=== PATIENT | female | born 1980 | race Hispanic/Latino ===

== ENCOUNTER 2018-07-31 23:21 | Observation (INO) | payer MEDICAID, OTHER ==
[~2018-07-31] VITALS: Ht 160 cm; Wt 80.3 kg
[2018-07-31] MEDS ORDERED: LACTATED RINGERS 1000ML 1,000 ML IV SCH (23:45)
[2018-07-31] MEDS ORDERED: PREN-196 PO (23:50)
[2018-08-01 00:10] LABS: BILIRUBIN,URINE Negative (NEGATIVE); COLOR,URINE Yellow (YELLOW); GLUCOSE, URINE (UA) Negative (NEGATIVE); KETONES,URINE Negative (NEGATIVE); LEUKOCYTE ESTERASE ,URINE Negative (NEGATIVE); NITRATE,URINE Negative (NEGATIVE); OCCULT BLOOD,URINE Negative (NEGATIVE); PROTEIN,URINE Negative (NEGATIVE); UROBILINOGEN,URINE 0.2 mg/dL (0.2-1.0)
[2018-08-01 00:12] LABS: APPEARANCE,URINE CLEAR (CLEAR)
== END 2018-08-01 07:00 | disposition home or self-care (01) ==
LOC: EDH 23:21 → LDH 23:47
PROVIDERS: ADMIT Obstetrics & Gynecology; ATTEND Obstetrics & Gynecology
DX: O26.893 Other specified pregnancy related conditions, third trimester (principal); R10.2 Pelvic and perineal pain; Z3A.35 35 weeks gestation of pregnancy
CPT/HCPCS: 81003; 99285; G0378 ×7; 96360; 96361

== ENCOUNTER 2018-09-02 11:30 | Inpatient (IN) | payer MEDICAID, OTHER ==
[~2018-09-02] VITALS: Ht 152.4 cm; Wt 83.5 kg
[~2018-09-02 11:30] MED LIST: PREN-196 PO
[2018-09-02 14:06] LABS: HEMATOCRIT 40.3 % (36-48); MEAN CORPUSCULAR HEMOGLOBIN 32.1 pg (27.0-33.0); MEAN CORPUSCULAR HGB CONC 34.8 g/dL (32.0-36.0); MEAN CORPUSCULAR VOLUME 92.1 fL (79-99); PLATELET COUNT (AUTO) 252 K/uL (130-400); RED BLOOD CELL COUNT(AUTO) 4.38 MIL/uL (4.00-5.50); RED CELL DISTRIBUTION WIDTH 14.3 % (11.0-15.5); WHITE BLOOD COUNT (AUTO) 9.1 K/uL (4.8-10.8)
[2018-09-03] MEDS ORDERED: CEFAZOLIN SODIUM 1 GM VIAL IVP PRN (05:45)
[2018-09-03] MEDS ORDERED: LACTATED RINGERS 1000ML 1,000 ML IV SCH (05:45)
[2018-09-03] MEDS ORDERED: DURAMORPH PF1 MG/ML 10ML AMP IV ONE (06:34)
[2018-09-03] MEDS ORDERED: FENTANYL CITRATE PF 50 MCG/1 ML 2ML VIAL ONE (06:34)
[2018-09-03] MEDS ORDERED: SENSORCAINE/DEXT/PF 0.75% 2ML AMP IJ ONE (06:36)
[2018-09-03] MEDS ORDERED: CEFAZOLIN SODIUM 1 GM VIAL ONE (06:36)
[2018-09-03] MEDS ORDERED: ONDANSETRON HCL 4 MG/2 ML VIAL ONE (07:03)
[2018-09-03] MEDS ORDERED: SODIUM CHLORIDE 0.9% 10 ML VIAL ONE (07:23)
[2018-09-03] MEDS ORDERED: PHENYLEPHRINE HCL 10 MG/ML 1ML VIAL IV ONE (07:23)
[2018-09-03 07:24] LABS: HEPATITIS Bs ANTIGEN SCREEN P Negative (Negative)
[2018-09-03] MEDS ORDERED: METOCLOPRAMIDE 10 MG/2 ML VIAL IVP PRN (08:45)
[2018-09-03] MEDS ORDERED: DiphenhydrAMINE HCL 50 MG/ML VIAL IVP PRN (08:45)
[2018-09-03] MEDS ORDERED: PROMETHAZINE HCL 25 MG/ML 1ML AMPULE IM PRN (08:45)
[2018-09-03] MEDS ORDERED: ONDANSETRON HCL 4 MG/2 ML VIAL IVP PRN ×2 (08:45)
[2018-09-03] MEDS ORDERED: HYDROCODONE/ACETAMINOPHEN 5/325 MG TAB PO PRN (08:45)
[2018-09-03] MEDS ORDERED: ONDANSETRON HCL 4 MG/2 ML 8 MG in SODIUM CHLORIDE 0.9% 50 ML IVP NR (08:45)
[2018-09-03] MEDS ORDERED: MORPHINE SULFATE 2 MG/ML 1ML SYG IVP PRN (08:45)
[2018-09-03] MEDS ORDERED: EPHEDRINE SULFATE 50 MG/ML AMPULE IVP PRN (08:45)
[2018-09-03] MEDS ORDERED: NALOXONE HCL 0.4 MG/1 ML ML IVP PRN ×2 (08:45)
[2018-09-03 09:15] VITALS: BP 121/74
[2018-09-03 11:28] VITALS: BP 133/76
[2018-09-03] MEDS: HYDROCODONE/ACETAMINOPHEN 5/325 MG TAB PO PRN (15:28)
[2018-09-03] MEDS ORDERED: OXYTOCIN 10 USP UNITS/ML ONE (15:33)
[2018-09-03 16:00] VITALS: BP 120/67
[2018-09-03 21:07] VITALS: BP 116/73
[2018-09-03] MEDS ORDERED: DEXTROSE 5 %-0.45 % NACL 1,000 ML IV SCH (22:15)
[2018-09-04 00:03] VITALS: BP 113/67
[2018-09-04] MEDS: HYDROCODONE/ACETAMINOPHEN 5/325 MG TAB PO PRN (03:52)
[2018-09-04 04:54] VITALS: BP 120/76
[2018-09-04] MEDS ORDERED: BISACODYL 10 MG SUPP.RECT RC PRN (05:00)
[2018-09-04] MEDS ORDERED: HYDROCODONE/ACETAMINOPHEN 5/325 MG TAB PO PRN (05:00)
[2018-09-04] MEDS ORDERED: LANOLIN 30GM OINTMENT TP PRN (05:00)
[2018-09-04 07:39] LABS: HEMATOCRIT 37.1 % (36-48); MEAN CORPUSCULAR HEMOGLOBIN 31.1 pg (27.0-33.0); MEAN CORPUSCULAR HGB CONC 33.3 g/dL (32.0-36.0); MEAN CORPUSCULAR VOLUME 93.2 fL (79-99); PLATELET COUNT (AUTO) 230 K/uL (130-400); RED BLOOD CELL COUNT(AUTO) 3.98 MIL/uL (4.00-5.50); RED CELL DISTRIBUTION WIDTH 14.3 % (11.0-15.5); WHITE BLOOD COUNT (AUTO) 12.9 K/uL (4.8-10.8)
[2018-09-04 08:01] VITALS: BP 103/56
[2018-09-04] MEDS: SIMETHICONE 80 MG TAB.CHEW PO PRN ×3 (08:54→21:11)
[2018-09-04] MEDS: DOCUSATE SODIUM 100 MG CAP PO SCH ×2 (08:54→21:11)
[2018-09-04] MEDS: IBUPROFEN 600 MG TABLET PO PRN ×2 (08:56→17:57)
[2018-09-04 11:47] VITALS: BP 120/76
[2018-09-04 15:55] VITALS: BP 123/73
[2018-09-04] MEDS: ACETAMINOPHEN-CODEINE 300/30MG TAB PO PRN (17:58)
[2018-09-04 20:04] VITALS: BP 140/83
[2018-09-05 00:27] VITALS: BP 116/63
[2018-09-05] MEDS: ACETAMINOPHEN-CODEINE 300/30MG TAB PO PRN ×2 (03:44→09:30)
[2018-09-05] MEDS ORDERED: MEASLES/MUMPS/RUBELLA VACCINE, LIVE 0.5 ML/VIAL SQ ONE (03:45)
[2018-09-05] MEDS: IBUPROFEN 600 MG TABLET PO PRN ×2 (05:15→13:19)
[2018-09-05 05:35] VITALS: BP 135/72
[2018-09-05 08:04] VITALS: BP 102/55
[2018-09-05] MEDS: DOCUSATE SODIUM 100 MG CAP PO SCH (09:29)
[2018-09-05] MEDS: SIMETHICONE 80 MG TAB.CHEW PO PRN ×2 (09:29→12:39)
[2018-09-05 11:49] VITALS: BP 117/71
[2018-09-05] MEDS ORDERED: DIPH,PERTUSS(ACELL),TET VAC/PF 0.5 ML VIAL IM SCH (12:00)
== END 2018-09-05 13:45 | disposition home or self-care (01) | DRG 788 ==
LOC: LDH 09-03 05:35 → WSH 09-03 09:15
PROVIDERS: ADMIT Obstetrics & Gynecology; ATTEND Obstetrics & Gynecology
PROC: 10D00Z1 Extraction of Products of Conception, Low, Open Approach (ICD-10-PCS; principal; 2018-09-03 07:00)
PROC: 3E0234Z Introduction of Serum, Toxoid and Vaccine into Muscle, Percutaneous Approach (ICD-10-PCS; 2018-09-05)
PROC: 3E0234Z Introduction of Serum, Toxoid and Vaccine into Muscle, Percutaneous Approach (ICD-10-PCS; 2018-09-05)
DX: O34.211 Maternal care for low transverse scar from previous cesarean delivery (principal); Z3A.39 39 weeks gestation of pregnancy; Z37.0 Single live birth; Z23 Encounter for immunization
CPT/HCPCS: 36415; 59510; 85027; 86592; 86850; 86900; 86901; 87340; 90707; 90715; A4344; A4450; A4606; J0690; J2274; J2370; J2405; J2590; J3010; J3490; J7120

== ENCOUNTER 2018-09-08 12:33 | Emergency (ER) | payer OTHER ==
[2018-09-08 14:24] LABS: BASOPHILS % (AUTO) 0.5 % (0.0-5.0); EOSINOPHILS % (AUTO) 5.8 % (0.0-8.0); HEMATOCRIT 35.8 % (36-48); LYMPHOCYTES % (AUTO) 23.6 % (21.0-51.0); MEAN CORPUSCULAR HEMOGLOBIN 31.4 pg (27.0-33.0); MEAN CORPUSCULAR HGB CONC 33.7 g/dL (32.0-36.0); MEAN CORPUSCULAR VOLUME 93.4 fL (79-99); NEUTROPHILS % (AUTO) 63.1 % (40.0-77.0); PLATELET COUNT (AUTO) 339 K/uL (130-400); RED BLOOD CELL COUNT(AUTO) 3.83 MIL/uL (4.00-5.50); RED CELL DISTRIBUTION WIDTH 14.3 % (11.0-15.5); WHITE BLOOD COUNT (AUTO) 10.1 K/uL (4.8-10.8)
[2018-09-08 14:34] LABS: CREATININE 0.6 mg/dL (0.5-1.5)
[2018-09-08 14:38] LABS: ALBUMIN 2.6 g/dL (3.5-5.0); BILIRUBIN,TOTAL 0.3 mg/dL (0.2-1.0); TOTAL PROTEIN, SERUM 6.8 g/dL (6.0-8.3)
[2018-09-08] MEDS ORDERED: DiphenhydrAMINE HCL 50 MG/ML VIAL ONE (15:25)
[2018-09-08] MEDS ORDERED: CEPHALEXIN 500 MG CAPSULE ONE (15:25)
== END 2018-09-08 17:15 | disposition home or self-care (01) ==
LOC: EDH 12:33
DX: N99.842 Postprocedural seroma of a genitourinary system organ or structure following a genitourinary system procedure (principal); L03.311 Cellulitis of abdominal wall; L03.116 Cellulitis of left lower limb; L03.115 Cellulitis of right lower limb
CPT/HCPCS: 36415; 76857; 80053; 85025; 93970; 96374; 99285; J1200